=== PATIENT | male | born 1950 | race Caucasian/White ===

== ENCOUNTER 2019-05-06 07:13 | Emergency (ER) | payer MEDICARE, OTHER ==
[~2019-05-06] VITALS: Ht 177.8 cm; Wt 83.6 kg
--- NOTE | 2019-05-06 07:38 | NUR ---
PT. IS A & O X 4 WITH GCS OF 15. PT. HAS C/O VOMITING X 2 DAYS AGO, NOW RESOLVED. PT. HAS A CONTINUED COUGH. PT. CHEST RISE AND FALL IS SYMMETRICAL. LUNGS ARE CTA. PT. HAS A STRONG COUGH WITH CONGESTION AND FEVER. PT.'S ABD. IS SOFT AND NON-TENDER WITH BS + X 4 QUADS. PULSES ARE + 2 THROUGHOUT. CAP REFILL IS BRISK. PT. HAS NO EDEMA PRESENT IN HIS EXTREMITIES. PT. IS ABLE TO DIXON WNL. PT. IS RESTING WITH THE PULSE OX AND BP CUFF IN PLACE. SIDERAILS REMAIN UP X [address]
[2019-05-06] MEDS ORDERED: ACETAMINOPHEN 325 MG TABLET PO ONE (08:00)
[2019-05-06] MEDS ORDERED: ACETAMINOPHEN 325 MG TABLET ONE (08:06)
--- NOTE | 2019-05-06 08:11 | NUR ---
PT. IS RESTING WITHOUT CONCERNS. VSS. PT. WAS MEDICATED ORDERED.
[2019-05-06 08:14] LABS: ALBUMIN 3.6 g/dL (3.4-5.0); ANION GAP 6 mmol/L (5-15); CALCIUM 8.7 mg/dL (8.5-10.1); CHLORIDE 107 mmol/L (98-107); CREATININE 1.55 mg/dL (0.7-1.3)
[2019-05-06 08:26] LABS: RAPID INFLUENZA A POSITIVE (Negative); RAPID INFLUENZA B Negative (Negative)
[2019-05-06 08:30] LABS: BASOPHILS # (AUTO) 0.02 x10^3/uL (0-0.1); BASOPHILS % (AUTO) 0 % (0-1); EOSINOPHILS % (AUTO) 0 % (1-7); LYMPHOCYTES # (AUTO) 1.02 x10^3/uL (1-3.4); LYMPHOCYTES % (AUTO) 22 % (22-44); MD NO; MEAN CORPUSCULAR HEMOGLOBIN 31.4 pg (27.5-34.5); MEAN CORPUSCULAR VOLUME 92.4 fL (81-97); MEAN PLATELET VOLUME 9.2 fL (7.4-10.4); MONOCYTES # (AUTO) 0.69 x10^3/uL (0.2-0.8); MONOCYTES % (AUTO) 15 % (2-9); NEUTROPHILS # (AUTO) 2.84 x10^3/uL (1.8-6.8); NEUTROPHILS % (AUTO) 62 % (42-75); PLATELET COUNT 189 x10^3/uL (130-400); RED BLOOD COUNT 5.08 x10^6/uL (4.38-5.82); RED CELL DISTRIBUTION WIDTH 13.7 % (9.4-14.8)
--- NOTE | 2019-05-06 09:45 | NUR ---
PT. WAS GIVEN DISCHARGE INSTRUCTIONS AND SCRIPTS WITH UNDERSTANDING VERBALIZED ALONG WITH WILLINGNESS TO COMPLY. PT.'S TEMP IS DOWN FROM EARLIER. PT. WAS AMBULATORY TO THE DISCHARGE DESK, STEADY GAIT.
[2019-05-06 10:10] VITALS: BP 111/75
== END 2019-05-06 10:14 | disposition home or self-care (01) ==
LOC: ED 10:10
DX: J10.1 Influenza due to other identified influenza virus with other respiratory manifestations (principal); I10 Essential (primary) hypertension; R11.10 Vomiting, unspecified; R07.89 Other chest pain
CPT/HCPCS: 36415; 71046; 80048; 82040; 85025; 87400; 99284